=== PATIENT | male | born 1950 | race Caucasian/White ===

== ENCOUNTER 2024-01-21 05:54 | Inpatient (IN) ==
--- NOTE | 2024-01-08 11:38 | PAT Medication Instructions ---
Medication Instructions Date of Service January 08, 2024 Home Medications amlodipine 5 mg tablet 5 mg PO QPM atorvastatin 20 mg tablet 20 mg PO PM folic acid 1 mg tablet 1 mg PO QAM glimepiride 1 mg tablet 1 mg PO QAM hydrochlorothiazide 12.5 mg tablet 12.5 mg PO QPM lisinopril 20 mg tablet 20 mg PO QPM loratadine 10 mg tablet 10 mg PO QPM multivitamin 1 cap PO QAM tamsulosin 0.4 mg capsule 0.4 mg PO QPM DO NOT take the morning of surgery folic acid 1 mg tablet 1 mg PO QAM glimepiride 1 mg tablet 1 mg PO QAM multivitamin 1 cap PO QAM Take evening before surgery amlodipine 5 mg tablet 5 mg PO QPM atorvastatin 20 mg tablet 20 mg PO PM hydrochlorothiazide 12.5 mg tablet 12.5 mg PO QPM lisinopril 20 mg tablet 20 mg PO QPM loratadine 10 mg tablet 10 mg PO QPM tamsulosin 0.4 mg capsule 0.4 mg PO QPM Other Notes NOTHING TO EAT OR DRINK AFTER MIDNIGHT. If you have any questions please call us at [phone] or [phone] or [phone] or [phone]
--- NOTE | 2024-01-09 13:18 | Anesthesiology Consultation ---
Date of Service January 09, 2024 Assessment & Plan (1) Encounter for pre-operative examination: - Check BSG AM DOS - Infectious disease screening: Per assessment on 01/09/24: No known infectious disease contacts or current infectious disease symptoms. No noted recent Covid positive test result. - Patient acceptable risk for surgery pending surgeon-ordered PCP preop evaluation (Dr. Peters). Chart Review Chart Review: Patient seen in Pre Admission Testing Teaching & Discussion Pre-Anesthesia Teaching/Discussion Notes: Instructed NPO after midnight before surgery,except medications with 15 cc of water. Medication instructions provided according to the PAT guidelines. History Surgery Operation Date: 01/21/24 11:25 Proposed Procedures p L2-S1 Decompression and Fusion, Spinal Cord Monitoring - Rosalio Jensen DO Height/Weight Height: 5 ft 11 in Weight: 110.7 kg Allergies Allergy/AdvReac Type Severity Reaction Status Date / Time No Known Allergies Allergy Unverified 10/19/15 10:49 Medications Home Medications Medication Instructions Recorded Confirmed Last Taken amlodipine 5 mg tablet 5 mg PO QPM 01/08/24 01/08/24 Unknown atorvastatin 20 mg tablet 20 mg PO PM 01/08/24 01/08/24 Unknown folic acid 1 mg tablet 1 mg PO QAM 01/08/24 01/08/24 Unknown glimepiride 1 mg tablet 1 mg PO QAM 01/08/24 01/08/24 Unknown hydrochlorothiazide 12.5 mg tablet 12.5 mg PO QPM 01/08/24 01/08/24 Unknown lisinopril 20 mg tablet 20 mg PO QPM 01/08/24 01/08/24 Unknown loratadine 10 mg tablet 10 mg PO QPM 01/08/24 01/08/24 Unknown multivitamin 1 cap PO QAM 01/08/24 01/08/24 Unknown tamsulosin 0.4 mg capsule 0.4 mg PO QPM 01/08/24 01/08/24 Unknown Past Medical History Medical History BPH (benign prostatic hyperplasia) Chronic back pain Diabetes mellitus NIDDM Foot drop, 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 Theodore Baker/[facility] Hyperlipemia Hypertension Seasonal allergies Exercise / Class Metabolic Activity II 4-5 Yardwork/Stairs/Walk up hill Past Surgical History Surgical History History of incision and drainage R/t left knee cellulitis Hx of hand surgery left hand (finger severed from accident) Hx of tonsillectomy Past Anesthesia History No Hx of Anesthesia Complications and No Family Hx of Anesthesia Complications History of PONV No Hx of PONV and No Hx of Motion Sickness Social History Smoking Status: Former smoker Do You Dip or Chew Tobacco: Yes (Quit 12/31/23 - advised none DOS) Smoking End Date: Quit 12/31/23 Hx Alcohol Use: No Hx Substance Use: No substance use type: does not use Review of Systems Patient denies chest pain, shortness of breath, dyspnea on exertion, fever, chills, cough, wheezing, palpitations. Physical Exam Vital Signs BP 161/82 P 102 TEMP 98.2 SP02 97%RA RESP 18 Physical Full cervical extension range of motion. Full TMJ range of motion. TMD 3 finger breaths Mallampati Score 2 Dentition: intact Lungs: clear throughout to auscultation Cardiac: regular rate and rhythm, no murmurs noted Spine: normal Carotid arteries: negative bruit Extremities: no LE edema Large garcia- Advised recommendation to trim/shorten. Patient states he has concerns with garcia shaving d/t evangelical/personal reasons. Advised patient that further discussion to be done with anesthesiologist DOS. Lab Results Anesthesia Preop Results Results Anesthesia Widget: WBC 5.58 K/ul (4.8-10.8) 01/09/24 Hgb 15.4 g/dl (14.0-18.0) 01/09/24 Hct 42.3 % (42.0-52.0) 01/09/24 Plt 165 K/uL (130-400) 01/09/24 Na 136 mmol/L (136-145) 01/09/24 K 4.1 mmol/L (3.5-5.1) 01/09/24 Cl 102 mmol/L (98-107) 01/09/24 CO2 28 mmol/L (21-32) 01/09/24 BUN 18 mg/dl (6-23) 01/09/24 Creat 0.92 mg/dl (0.6-1.4) 01/09/24 Glucose Level 159 mg/dl (70-99(Fasting)) H 01/09/24 PT 10.4 Seconds (9.0-12.0) 01/09/24 PTT 27 Seconds (21-31) 01/09/24 INR 0.9 (0.9-1.1) 01/09/24 HA1c 7.0 % (4.5-5.6) H 01/09/24 Urine Color Yellow 01/09/24 Urine Appearance Clear (Clear) 01/09/24 Urine pH 6.0 (4.5-7.5) 01/09/24 Urine Specific [place] 1.008 (1.000-1.030) 01/09/24 Urine Protein Negative (Negative) 01/09/24 Urine Glucose (UA) Negative (Negative) 01/09/24 Urine Ketones Negative (Negative) 01/09/24 Urine Blood Negative (Negative) 01/09/24 Urine Nitrite Negative (Negative) 01/09/24 Urine Bilirubin Negative (Negative) 01/09/24 Urine Urobilinogen Negative (Negative) 01/09/24 Urine Leukocyte Esterase Negative (Negative) 01/09/24 Blood Type O Positive 01/09/24 Antibody Screen NEGATIVE 01/09/24 Testing Electrocardiogram Date: 01/09/24 ST at 102bpm. RBBB. Chest X-Ray Date: 01/09/24 FINDINGS: Lung volumes are normal. Lungs are clear. There is no pneumothorax or pleural effusion. Cardiac size is normal. There is a probable small hiatal hernia. There is no evidence for pulmonary edema. IMPRESSION: No acute cardiopulmonary findings.
[2024-01-21] MEDS ORDERED: PROPOFOL IV EMULSION 10 MG/ML 20 ML VIAL IV ONE (06:54)
[2024-01-21] MEDS ORDERED: DEXAMETHASONE SOD INJ 4 MG/ML VIAL ONE (06:54)
[2024-01-21] MEDS ORDERED: LIDOCAINE 2% 2 ML VIAL/AMP(20MG/ML) INFIL ONE (06:54)
[2024-01-21] MEDS ORDERED: ONDANSETRON INJ 2 MG/ML 2 ML VIAL ONE (06:54)
[2024-01-21] MEDS ORDERED: fentaNYL citrate PF 100 MCG/2 ML VIAL ONE (06:54)
[2024-01-21] MEDS ORDERED: MIDAZOLAM HCL 1 MG/ML 2ML VIAL ONE (06:54)
[2024-01-21] MEDS ORDERED: ROCURONIUM BROMIDE 10 MG/ML 5 ML VIAL IV ONE ×3 (06:54→09:26)
[2024-01-21] MEDS: CeleBREX 200 MG CAP PO SCH (06:56)
[2024-01-21] MEDS: LR 15ML/HR IV SCH (06:56)
[2024-01-21] MEDS ORDERED: KETAMINE HCL INJ 50 MG/ML 10 ML VIAL ONE (06:56)
[2024-01-21] MEDS: ACETAMINOPHEN 500 MG TAB PO SCH (06:57)
[2024-01-21] MEDS: GABAPENTIN 300 MG CAP PO SCH (06:57)
[2024-01-21] MEDS ORDERED: ePHEDrine sulfate 50 MG/ML AMP IV PRN (07:06)
[2024-01-21] MEDS ORDERED: ONDANSETRON INJ 2 MG/ML 2 ML VIAL IV PRN ×2 (07:06→13:58)
[2024-01-21] MEDS ORDERED: fentaNYL citrate PF 100 MCG/2 ML VIAL IV PRN (07:06)
[2024-01-21] MEDS ORDERED: ATROPINE SULFATE 0.1 MG/ML 10ML SYR IV PRN (07:06)
[2024-01-21] MEDS ORDERED: HYDROmorphone INJ 2 MG/ML SYR/VIAL IV PRN (07:06)
--- NOTE | 2024-01-21 07:44 | History & Physical Bridge Note ---
Date of Service January 21, 2024 History & Physical Bridge Note I have examined the patient, reviewed the History & Physical and in the interval since the performance of the History & Physical I have noted the following changes of clinical significance: no changes noted
--- NOTE | 2024-01-21 07:45 | History & Physical Report ---
Date of Service January 21, 2024 Assessment & Plan (1) Neurogenic claudication due to lumbar spinal stenosis: Plan: L2-S1 decompression and fusion History of Present Illness Chief Complaint: Back and leg pain Primary Care Provider: Lauren Peters MD This is a 73-year-old female presents chronic persistent back and leg pain Patient nonoperative care is here for surgical invention. Allergies Allergy/AdvReac Type Severity Reaction Status Date / Time No Known Allergies Allergy Verified 01/21/24 06:36 Home Medications Medication Instructions Recorded Confirmed Type amlodipine 5 mg tablet 5 mg PO QPM 01/08/24 01/21/24 History atorvastatin 20 mg tablet 20 mg PO PM 01/08/24 01/21/24 History folic acid 1 mg tablet 1 mg PO QAM 01/08/24 01/21/24 History glimepiride 1 mg tablet 1 mg PO QAM 01/08/24 01/21/24 History hydrochlorothiazide 12.5 mg tablet 12.5 mg PO QPM 01/08/24 01/21/24 History lisinopril 20 mg tablet 20 mg PO QPM 01/08/24 01/21/24 History loratadine 10 mg tablet 10 mg PO QPM 01/08/24 01/21/24 History multivitamin 1 cap PO QAM 01/08/24 01/21/24 History tamsulosin 0.4 mg capsule 0.4 mg PO QPM 01/08/24 01/21/24 History Past Med/Surg History Medical History BPH (benign prostatic hyperplasia) Chronic back pain Diabetes mellitus NIDDM Foot drop, 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 Theodore Baker/[facility] heme-[facility] Hyperlipemia Hypertension Seasonal allergies Surgical History History of incision and drainage R/t left knee cellulitis Hx of hand surgery left hand (finger severed from accident) Hx of tonsillectomy Social History Smoking Status: Former smoker Tobacco Type: Cigarettes and Smokeless Tobacco (Dip or Chew) Smoking End Date: Quit 12/31/23; Second Hand Exposure: No; Do You Dip or Chew Tobacco: Yes (Quit 12/31/23 - advised none DOS); Tobacco Cessation Education Requested by Patient: No Hx Alcohol Use: No Hx Substance Use: No Preferred Language: Macanese Communication Ability: Effective 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
[2024-01-21] MEDS: ceFAZolin 2000MG 2,000 MG/15 ML SYR IV SCH ×2 (07:51→18:00)
[2024-01-21] MEDS: BUPIVACAINE/EPINEPHRINE 0.25% 1:200,000 30 ML VIAL ONE (08:24)
[2024-01-21] MEDS ORDERED: PHENYLEPHRINE 100MCG/ML 10ML SYR IV ONE (08:31)
[2024-01-21] MEDS ORDERED: VASOPRESSIN 20 UNIT/ML VIAL ONE (08:31)
[2024-01-21] MEDS ORDERED: PHENYLEPHRINE HCL 10 MG/ML VIAL ONE (08:48)
[2024-01-21] MEDS ORDERED: HYDROmorphone INJ 2 MG/ML SYR/VIAL ONE (09:24)
[2024-01-21] MEDS: ceFAZolin 330 MG/ML 1 GM VIAL ONE (09:30)
[2024-01-21] MEDS ORDERED: SUGAMMADEX SODIUM 200 MG/2 ML VIAL IV ONE (10:36)
[2024-01-21] MEDS: FLOSEAL HEMOSTATIC MATRIX 10ML TOP ONE (11:01)
--- NOTE | 2024-01-21 11:05 | Operative Report ---
Post Operative Report Pre & Post Diagnosis Operation Date: 01/21/24 07:45 Pre-Op Diagnosis: Neurogenic Claudication due to Lumbar Spinal Stenosis Lumbar spondylolisthesis L4-L5 L5-S1 Obesity Post-Op Diagnosis: Same I identified the patient and participated in the time-out.: Yes Procedure Operation Date: 01/21/24 07:45 Actual Procedures #1 lumbar decompression bilateral medial facetectomies and foraminotomies L2-L3, L3-L4, L4-L5 and L5-S1. #2 posterior spinal fusion L2-S1. #3 placement posterior segmental instrumentation L2-S1. #4 interbody fusion L4-L5 L5-S1. #5 placement Spira 12 x 26 mm x 2 at L4-5 and 10 x 26 mm x 2 at L5-S1. #6 placement locally harvested morselized autograft and posterior lateral gutters. #7 placement infuse collagen sponge combined with Koros bone graft in the posterior lateral gutters and Morpheus bone graft interbody space. Surgeon Rosalio Jensen, DO Publications Production Supervisor Aida Alcantar Estimated Blood Loss 700 Findings See Below The patient is 5 foot 10 weighing 110 kg with a BMI in excess of 34. This combined with an EBL of greater than 700 cc created significant technical difficulty from positioning exposure and the procedure itself adding at least 50% increased operative time. Specimens None Indications This is a 73-year-old male who presents above-mentioned diagnosis after failed course of nonoperative care is here for surgical invention. Description of Procedure Patient was met with identified informed consent obtained. Patient was then taken to the operative suite underwent ablation placed in a prone position on Carlo table on top of the Patrick frame. All bony prominences well-padded eyes inspected to ensure no external pressure placed upon the bed at this point the lumbar spine was prepped and draped in normal sterile fashion. Sharp dissection with the assistance of Bovie cautery was performed down to and exposing the lamina and transverse processes of L2 L3-L4-L5 and the sacral ala bilaterally. Obvious pars defect was appreciated at L5-S1 bilaterally. Then performed a complete laminectomy L5 including bilateral medial facetectomies and foraminotomies addressing severe spinal stenosis. I then addressed L4 completing complete discectomy bilateral medial facetectomies and foraminotomies followed by L3 with bilateral medial facetectomies and foraminotomies and lastly L2 with bilateral medial facetectomies and foraminotomies. Pedicle screws were then placed in L2 L3-L4-L5 and S1 levels bilaterally with assistance of fluoroscopy the process priscilla contoured and placed. By way the transforaminal approach on the right a discectomy of L5-S1 was performed endplates guided to subcortical bleeding bone and a 10 x 26 mm Spira cage for with Morpheus bone graft tapped in position. Then proceeded to the left transforaminal region at L5-S1 completed the discectomy endplates guided to subcortical bleeding bone and a second 10 x 26 mm Spira cage filled with Morpheus bone graft tapped in position. And then proceeded to L4-[address] of transforaminal approach on the left discectomy was performed endplates guided to subcortical bleeding bone and a 12 x 26 mm Spira cage filled with Morpheus bone graft tapped in position. Then proceeded to the right transforaminal region at L4-5 completed the discectomy endplates guided to subcortical bleeding bone and a second 12 x 26 mm Spira cage filled with Morpheus bone graft tapped in position. The rods were then compressed locked in final position bilaterally. Transverse processes of L2-L3 L4-5 and the sacral ala burred to subcortical bleeding bone. Infuse collagen sponge combined with Koros bone graft and local autograft placed in the posterior lateral gutters. 15 round MELBA drain inserted. The incision was then closed with 1 Vicryl the fascia 2-0 Vicryl subcutaneously and 4 Monocryl for final skin closure. Steri-Strips sterile dressing placed. Patient waken taken to PACU in stable condition. Please note spinal cord monitoring was utilized at the procedure no changes noted. Lastly Aida Alcantar was present at the entire surgeon while the patient positioning complex portion of the surgery and final closure. I attest to the content of the Intraoperative Record and any orders documented therein. Any exceptions are noted below.
--- NOTE | 2024-01-21 11:10 | Fluoroscopy Report ---
FL lumbar spine 2-3V CLINICAL HISTORY: L2-S1 DECOMPRESSION AND FUSION COMPARISON STUDY: Lumbar spine MRI October 29, 2023. Lumbar spine radiographs November 19, 2023. FLUOROSCOPY TIME: 42 seconds. Ka,r : 38.39 mGy FLUOROSCOPIC IMAGES: 4 FINDINGS: Fluoroscopy was provided during L4-L5 and L5-S1 discectomies with interbody spacer placemen t. Posterior decompression is noted. There are bilateral pedicle screws at the L2, L3, L4, L5 and S1 levels. IMPRESSION: Fluoroscopy provided during L2-S1 decompression and fusion. ACT 112: Negative or not required by law. Electronically signed by: Erasto Chacko M.D. 01/21/2024 11:08 AM
--- NOTE | 2024-01-21 12:07 | Anesthesiology Progress Note ---
Date of Service January 21, 2024 Anesthesia Post Procedure Vital Signs Vital Signs: Temp Pulse Resp BP Pulse Ox O2 Del Method O2 Flow Rate 01/21/24 12:00 111 H 14 121/68 93 Oxymask 2 01/21/24 11:50 110 H 14 105/66 97 Oxymask 6 01/21/24 11:40 109 H 16 102/68 95 Oxymask 6 01/21/24 11:34 107 H 13 109/94 96 Oxymask 6 01/21/24 11:25 99 H 16 74/63 L 95 Oxymask 12 01/21/24 11:19 97.9 F 98 H 12 99/74 L 94 Oxymask 12 01/21/24 06:30 98.8 F 118 H 20 145/88 H 98 Room Air Pain Intensity Bilateral Lower Back: Pain Intensity: 1 Transfer of Care Handoff Completed per policy Notes Mental Status: alert / awake / arousable and participated in evaluation Patient Amnestic to Procedure: Yes Nausea / Vomiting: adequately controlled Pain: adequately controlled Airway Patency, RR, SpO2: stable & adequate BP & HR: stable & adequate Hydration State: stable & adequate Anesthetic Complications: no major complications apparent and Pt Satisfied with anesthetic care
[2024-01-21] MEDS ORDERED: hydrOXYzine HCl 25 MG TAB PO PRN (13:58)
[2024-01-21] MEDS ORDERED: NALOXONE HCL 0.4 MG/1 ML VIAL/CARP IV PRN (13:58)
[2024-01-21] MEDS ORDERED: HYDROmorphone INJ 1 MG/ML SYRINGE IV PRN (13:58)
[2024-01-21] MEDS ORDERED: METOCLOPRAMIDE HCL INJ 5 MG/ML 2 ML VIAL IV PRN (13:58)
[2024-01-21] MEDS ORDERED: LORazepam 0.5 MG TAB PO PRN (13:58)
[2024-01-21] MEDS ORDERED: LORazepam 0.5 MG in SYRINGE 0.25 ML IV PRN (13:58)
[2024-01-21] MEDS ORDERED: ACETAMINOPHEN 1,000 MG/100 ML VIAL IV PRN (13:58)
[2024-01-21] MEDS ORDERED: oxyCODONE HCL IR 5 MG TAB (IMMEDIATE RELEASE) PO PRN (13:58)
[2024-01-21] MEDS ORDERED: diphenhydrAMINE Capsule 25 MG CAP PO PRN (13:58)
[2024-01-21] MEDS ORDERED: DO NOT ADMINISTER FLU VACCINE PRN (13:58)
[2024-01-21] MEDS ORDERED: DO NOT ADMINISTER PNEUMOCOCCAL VACCINE PRN (13:58)
[2024-01-21] MEDS ORDERED: bisacodyL 10 MG SUPP PR PRN (13:58)
[2024-01-21] MEDS ORDERED: MAGNESIUM HYDROXIDE SUSP 30 ML UDC PO PRN (13:58)
[2024-01-21] MEDS ORDERED: SOD PHOSPHATE/SOD BIPHOSPHATE ENEMA 132 ML BTL PR PRN (13:58)
[2024-01-21] MEDS ORDERED: HYDROmorphone INJ 0.5 MG/0.5 ML SYR IV PRN (13:58)
[2024-01-21] MEDS ORDERED: traMADol HCL 50 MG TABLET PO PRN (13:58)
[2024-01-21] MEDS ORDERED: PHARMACY GLYCEMIC MGMT CONSULT PRN (13:58)
[2024-01-21] MEDS ORDERED: ALUMINUM/MAGNESIUM SUSP 30 ML UDC PO PRN (13:58)
[2024-01-21] MEDS ORDERED: PROMETHAZINE HCL 12.5 MG in SODIUM CHLORIDE 0.9% 50 ML IV PRN (13:58)
[2024-01-21] MEDS ORDERED: ONDANSETRON 4 MG OD TAB PO PRN (13:58)
[2024-01-21] MEDS: LR 60ML/HR IV SCH (14:21)
--- NOTE | 2024-01-21 15:09 | Pharmacy Report ---
Pharmacy Glycemic Short Note 2 - Date of Service January 21, 2024 - Glycemic Short BSG Results (Last 24 hours): 01/21/24 01/21/24 06:37 11:20 POC Glucose 130 H 212 H OUTPATIENT ANTIDIABETIC REGIMEN: * glimepiride 1mg PO QAM * HbA1c 7.0% 01/09/24 ASSESSMENT: * Theodore is a 73 YOM admitted status post spinal decompression/fusion with a history of diabetes mellitus. Pharmacy has been consulted for glycemic managem ent while inpatient. * Preoperative BSG within goal range, demetrio above 200 by midday, appears to have received IV steroids in the OR, ongoing dexamethasone 6mg IV daily ordered for 3 days. Give approximately 0.3units/kg x1 now, basal scale added at bedtime if additional coverage is needed. * Novolog initiated at a weight based stress of 3 PLAN FOR INPATIENT GLYCEMIC CONTROL: * Hold outpatient oral diabetes medications * Basal insulin * Lantus 30 units SQ x1 * Lantus 0-20 units SQ HS (see eMAR for additional details) * Bolus insulin * NovoLog per scale ACHS or Q6hrs while NPO * Goal Range: Low 110 mg/dL - High 140 mg/dL * Correction Factor: 15 mg/dL/unit * Nutritional / Prandial insulin per carb ratio of 1 unit per 5 grams CHO consumed
--- NOTE | 2024-01-21 15:13 | Consultation ---
Date of Consultation January 21, 2024 Assessment & Plan (1) Neurogenic claudication due to lumbar spinal stenosis: (2) Diabetes mellitus: (3) History of leukemia: (4) Hypertension: (5) Hyperlipemia: Plan This is a 73-year-old male who has a significant past medical history of T2DM, HTN, HLD, BPH, history of leukemia and chronic back pain who presents for elective lumbar procedure by Dr. Jensen. Neurogenic claudication due to lumbar spinal stenosis Status post lumbar decompression fusion L2-S1, Dr. Jensen POD #0 EBL 700 mL, GRZEGORZ drain 425 ml Tolerated procedure well Pain/wound management per orthopedic Activity and therapy as per orthopedics Encourage incentive spirometry Monitor hemoglobin in setting of blood loss, preop 15 T2DM, controlled Hold glimepiride A1c 7.0 Lantus/NovoLog per protocol, glycemic pharmacy on board appreciate input HTN Blood pressure on lower side postoperatively, required IV fluid bolus Hold lisinopril, amlodipine, HCTZ which were to be administered starting this evening Resume as blood pressure allows Hyperlipidemia Chronic, stable Continue statin BPH Chronic, stable Continue Flomax History of hairy cell leukemia Diagnosed in 2011, currently in remission follows Dr. Augustin DVT ppx: SCDs per primary FULL CODE PCP: Lauren Peters, pt and family state they wish to establish with someone in [place], discussed if they wish to establish with someone with in [facility] we could make them a hospital follow up appointment Dispo: per primary Thank you for this consultation. We will follow the patient with you during their hospital stay. You can reach a member of the [facility] Hospitalist Team 23/04 via hospitalist role on tiger text. A total of 45 minutes was spent coordinating, documenting, and providing care for this patient excluding time spent in the performance of separately billed services. This included personally viewing all current laboratories and imaging studies, medication reconciliation, outpatient chart review, and discussion with specialists. Supervising Physician Co-Signing Physician Notes Patient seen and examined at bedside independently. Discussed with above provider He is comfortably lying in the bed; not in distress. He denies chest pain, shortness of breath, abdominal discomfort or urinary symptoms. Continue home meds for hypertension Insulin sliding scale for type 2 diabetes mellitus I have reviewed the advanced practitioner's documentation, and I agree with, and take responsibility for the plan of care I spent a total of 15 minutes coordinating, documenting, and providing care for this patient excluding time spent in the performance of separately billed services. All of the aforementioned completed while collaborating with the assigned advanced practitioner for a full treatment plan Please note the above document was generated using voice recognition software. It may contain grammatical, syntax or spelling errors. Any formal questions or concerns about the content, text or information contained within the body of this dictation should be directly addressed to the provider for clarification History of Present Illness Requesting Physician: Dr. Jensen Reason for Consultation: Postop medical management Attending Physician: Rosalio Jensen, DO History of Present Illness This is a 73-year-old male who has a significant past medical history of T2DM, HTN, HLD, BPH, history of leukemia and chronic back pain who presents for elective lumbar procedure by Dr. Jensen. He underwent an L2-S1 decompression and fusion today and tolerated the procedure well. His outpatient preop clearance was reviewed. His last A1c is 7.3. His medications were also reconciled through his medical clearance paperwork. He has history of high blood pressure maintained on amlodipine, hydrochlorothiazide and lisinopril. Allergies Allergy/AdvReac Type Severity Reaction Status Date / Time No Known Allergies Allergy Verified 01/21/24 06:36 Home Medications Medication Instructions Recorded Confirmed Type amlodipine 5 mg tablet 5 mg PO QPM 01/08/24 01/21/24 History atorvastatin 20 mg tablet 20 mg PO PM 01/08/24 01/21/24 History folic acid 1 mg tablet 1 mg PO QAM 01/08/24 01/21/24 History glimepiride 1 mg tablet 1 mg PO QAM 01/08/24 01/21/24 History hydrochlorothiazide 12.5 mg tablet 12.5 mg PO QPM 01/08/24 01/21/24 History lisinopril 20 mg tablet 20 mg PO QPM 01/08/24 01/21/24 History loratadine 10 mg tablet 10 mg PO QPM 01/08/24 01/21/24 History multivitamin 1 cap PO QAM 01/08/24 01/21/24 History tamsulosin 0.4 mg capsule 0.4 mg PO QPM 01/08/24 01/21/24 History Patient History Medical History (Updated 01/21/24 @ 15:31 by Rylee Lyon PA-C) Diabetes mellitus NIDDM Seasonal allergies Herniated lumbar intervertebral disc Chronic back pain Foot drop, 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) Family History (Updated 01/21/24 @ 15:35 by Rylee Lyon PA-C) Other Family history non-contributory Social History Smoking Status: Former smoker Tobacco Type: Cigarettes and Smokeless Tobacco (Dip or Chew) Smoking End Date: Quit 12/31/23; Second Hand Exposure: No; Do You Dip or Chew Tobacco: Yes (Quit 12/31/23 - advised none DOS); Tobacco Cessation Education Requested by Patient: No Hx Alcohol Use: No Hx Substance Use: No Preferred Language: Macedonian Communication Ability: Effective Creative Writing Professor Required: No Beliefs That Will Affect Care: None Current Living Situation: Spouse Other Information That Helps Us Care for You: No Feels Safe at Home: Yes Safety Concerns: Feels Safe At This Time Assistive Devices: None Review of Systems Review of Systems: All systems reviewed & are unremarkable except as noted in HPI & below Physical Exam Physical Exam: Constitutional: WD/WN, obese, M, vitals as above, NAD, sitting up in bed, pleasant, conversing easily Head: Normocephalic, Atraumatic Eyes: PERRL, conjunctivae normal, anicteric sclerae ENMT: external ear and nose normal, oropharynx normal Neck: trachea midline, no thyromegaly normal visual inspection Respiratory: normal respiratory effort, lungs clear to auscultation, no wheeze, rales, rhonchi. Normal insp/exp effort, no accessory muscle use Cardiovascular: RRR, no murmur, no edema Vessels: no JVD or carotid bruit Chest: normal inspection of chest Abdomen: protuberant abd, normal bowel sounds, soft, nontender, no hepatosplenomegaly Musculoskeletal: no cyanosis or clubbing, AROM x 4, lumbar dressing cdi, grzegorz drain with serosang drainage Skin: no rashes, warm and dry normal turgor Neurologic: no face palsy, no dysarthria CN's II-XI intact bilaterally and moves all extremities Psychiatric: A+Ox3, euthymic affect Lymphatic: no cervical or axillary lymphadenopathy : Macias intact draining yellow urine Results & Data Vital Signs (Past 12 Hours) Vital Signs Temp Pulse Resp BP Pulse Ox O2 Del Method O2 Flow Rate 01/21/24 14:25 36.4 C L 98 H 14 103/64 94 Room Air 01/21/24 13:20 106 H 14 105/52 L 94 Room Air 0 01/21/24 13:10 106 H 13 112/56 L 92 Room Air 0 01/21/24 13:00 37.3 C 107 H 14 101/50 L 95 Room Air 0 01/21/24 12:50 103 H 12 92/47 L 92 Room Air 0 01/21/24 12:40 36.2 C L 105 H 13 92/44 L 92 Room Air 0 01/21/24 12:30 36.2 C L 104 H 13 102/46 L 92 Room Air 0 01/21/24 12:20 111 H 13 99/46 L 94 Room Air 0 01/21/24 12:10 111 H 12 90/55 L 92 Room Air 0 01/21/24 12:00 111 H 14 121/68 93 Oxymask 2 01/21/24 11:50 110 H 14 105/66 97 Oxymask 6 01/21/24 11:40 109 H 16 102/68 95 Oxymask 6 01/21/24 11:34 107 H 13 109/94 96 Oxymask 6 01/21/24 11:25 99 H 16 74/63 L 95 Oxymask 12 01/21/24 11:19 36.6 C 98 H 12 99/74 L 94 Oxymask 12 01/21/24 06:30 37.1 C 118 H 20 145/88 H 98 Room Air Laboratory Results Preoperative labs done on 01/09/2024 reviewed independently interpreted by myself. CBC was generally unremarkable with a hemoglobin of 15.4. BMP was also generally unremarkable except for mild hyperglycemia with a glucose of 159 and A1c 7.0. Urinalysis was negative. Diagnostic Findings Lumbar Spine X-Ray 01/21/24 09:35 FL lumbar spine 2-3V CLINICAL HISTORY: L2-S1 DECOMPRESSION AND FUSION COMPARISON STUDY: Lumbar spine MRI October 29, 2023. Lumbar spine radiographs November 19, 2023. FLUOROSCOPY TIME: 42 seconds. Ka,r : 38.39 mGy FLUOROSCOPIC IMAGES: 4 FINDINGS: Fluoroscopy was provided during L4-L5 and L5-S1 discectomies with interbody spacer placement. Posterior decompression is noted. There are bilateral pedicle screws at the L2, L3, L4, L5 and S1 levels. IMPRESSION: Fluoroscopy provided during L2-S1 decompression and fusion. ACT 112: Negative or not required by law. Electronically signed by: Erasto Chacko M.D. 01/21/2024 11:08 AM Preoperative chest x-ray on 01/09/2024 revealed no acute cardiopulmonary findings. This was independently interpreted and reviewed by myself Medications Administered Current Inpatient Medications Acetaminophen (Acetaminophen 500 Mg Tab) 1,000 mg PO PREOP LILY Stop: 01/21/24 18:00 Last Admin: 01/21/24 06:57 Dose: 1,000 mg Acetaminophen (Acetaminophen 500 Mg Tab) 1,000 mg PO Q8H PRN PRN Reason: MILD Pain Scale 1,2,3 & Pre PT Stop: 02/20/24 13:57 Al Hydrox/Mg Hydrox/Simethicone (Aluminum/Magnesium Susp 30 Ml Udc) 30 ml PO Q6H PRN PRN Reason: Dyspepsia Stop: 02/20/24 13:57 Amlodipine Besylate (Amlodipine Besylate 5 Mg Tab) 5 mg PO QPM LILY Stop: 02/20/24 20:59 Atorvastatin Calcium (Atorvastatin 20 Mg Tab) 20 mg PO PM LILY Stop: 02/20/24 20:59 Bisacodyl (Bisacodyl 10 Mg Supp) 10 mg [place] DAILY PRN PRN Reason: Constipation Stop: 02/20/24 13:57 Celecoxib (Celebrex 200 Mg Cap) 200 mg PO PREOP LILY Stop: 01/21/24 18:00 Last Admin: 01/21/24 06:56 Dose: 200 mg Diphenhydramine HCl (Diphenhydramine Capsule 25 Mg Cap) 25 mg PO Q6H PRN PRN Reason: Allergic Rhinitis/Insomnia Stop: 02/20/24 13:57 Famotidine (Famotidine 20 Mg Tab) 20 mg PO Q12H PRN PRN Reason: Dyspepsia Stop: 02/20/24 13:57 Folic Acid (Folic Acid 1 Mg Tab) 1 mg PO QAM LILY Stop: 02/21/24 08:59 Gabapentin (Gabapentin 300 Mg Cap) 300 mg PO PREOP LILY Stop: 01/21/24 18:00 Last Admin: 01/21/24 06:57 Dose: 300 mg Hydrochlorothiazide (Hydrochlorothiazide 25 Mg Tab) 12.5 mg PO QPM LILY Stop: 02/20/24 20:59 Hydromorphone HCl (Hydromorphone Inj 0.5 Mg/0.5 Ml Syr) 0.5 mg IV Q3H PRN PRN Reason: MODERATE Pain (Scale 4,5,6) & Pre PT Stop: 02/04/24 13:57 Hydromorphone HCl (Hydromorphone Inj 1 Mg/Ml Syringe) 1 mg IV Q3H PRN PRN Reason: SEVERE Pain (Scale 7,8,9,10) Stop: 02/04/24 13:57 Hydroxyzine HCl (Hydroxyzine Hcl 25 Mg Tab) 25 mg PO Q8H PRN PRN Reason: Anxiety Stop: 02/20/24 13:57 Lactated Ringer's (Lr) 1,000 mls @ 60 mls/hr IV .[id number] LILY Stop: 01/21/24 22:39 Last Admin: 01/21/24 14:21 Dose: Not Given Cefazolin Sodium (Ancef 2000mg) 2,000 mg in 15 mls @ 3.75 mls/min IV PREOP LILY; Protocol Stop: 01/21/24 18:00 Last Admin: 01/21/24 07:51 Dose: 3.75 mls/min Lactated Ringer's (Lr) 1,000 mls @ 15 mls/hr IV .Q24H LILY Stop: 01/22/24 05:59 Last Infusion: 01/21/24 07:50 Dose: Infused Lactated Ringer's (Lr) 1,000 mls @ 150 mls/hr IV .[id number] LILY Stop: 02/20/24 13:57 Promethazine HCl 12.5 mg/ (Sodium Chloride) 50.5 mls @ 202 mls/hr IV Q6H PRN PRN Reason: Nausea &/or Vomiting Stop: 02/20/24 13:57 Acetaminophen (Ofirmev) 1,000 mg in 100 mls @ 400 mls/hr IV Q8H PRN PRN Reason: Pain Rating 1-3 & Pre PT Stop: 01/22/24 13:59 Cefazolin Sodium (Ancef 2000mg) 2,000 mg in 15 mls @ 3.75 mls/min IV Q8H LILY; Protocol Stop: 01/22/24 01:33 Lorazepam 0.5 mg/ Syringe 0.5 mls @ 2 mls/min IV Q8H PRN; Protocol PRN Reason: Sedation/Anxiety Stop: 02/20/24 13:57 Dexamethasone 6 mg/ Syringe 1.5 mls @ 1 mls/min IV DAILY [facility] Stop: 01/24/24 09:02 Influenza Virus Vaccine Quadrival (Do Not Administer Flu Vaccine) 1 each N/A PRN PRN PRN Reason: Notification Stop: 02/20/24 13:57 Insulin Aspart (Insulin Aspart Per Unit Charge) 0 units SC [facility] Stop: 02/20/24 14:29 Insulin Glargine (Lantus Per Unit Charge) 0 units SC [facility]; Protocol Stop: 01/21/24 21:01 Lisinopril (Lisinopril 20 Mg Tab) 20 mg PO QPM [facility] Stop: 02/20/24 20:59 Loratadine (Loratadine 10 Mg Tab) 10 mg PO QPM [facility] Stop: 02/20/24 20:59 Lorazepam (Lorazepam 0.5 Mg Tab) 0.5 mg PO Q8H PRN PRN Reason: Sedation/Anxiety Stop: 02/20/24 13:57 Magnesium Hydroxide (Magnesium Hydroxide Susp 30 Ml Udc) 30 ml PO Q24H PRN PRN Reason: Constipation Stop: 02/20/24 13:57 Metoclopramide HCl (Metoclopramide Hcl Inj 5 Mg/Ml 2 Ml Vial) 10 mg IV Q6H PRN PRN Reason: Nausea &/or Vomiting Stop: 02/20/24 13:57 Miscellaneous Information (Pharmacy Glycemic Mgmt Consult) 1 each N/A UD PRN PRN Reason: Consult Stop: 02/20/24 13:57 Multivit[facility] ([facility]amin Tab) [facility] [place] [facility] Stop: 02/21/24 08:59 Naloxone HCl (Naloxone Hcl 0.4 Mg/1 Ml Vial/Carp) 0.1 mg IV Q5M PRN PRN Reason: Oversedation/Resp depression Stop: 02/20/24 13:57 Ondansetron HCl (Ondansetron Inj 2 Mg/Ml 2 Ml Vial) 4 mg IV Q6H PRN PRN Reason: Nausea &/or Vomiting Stop: 02/20/24 13:57 Ondansetron HCl (Ondansetron 4 Mg Od Tab) 4 mg PO Q6H PRN PRN Reason: Nausea Stop: 02/20/24 13:57 Oxycodone HCl (Oxycodone Hcl Ir 5 Mg Tab (Immediate Release)) 5 - 10 mg PO Q4H PRN PRN Reason: Pain & Pre PT Stop: 02/04/24 13:57 Pneumococcal Polyvalent Vaccine (Do Not Administer Pneumococcal Vaccine) 1 each N/A PRN PRN PRN Reason: Notification Stop: 02/20/24 13:57 Polyethylene Glycol (Polyethylene (Miralax) 17 Gm Pack) 17 gm PO Q6 LILY Stop: 02/21/24 05:59 Senna/Docusate Sodium (Docusate Sodium/Senna 50/8.6mg Tab) 2 tab PO HS LILY Stop: 02/20/24 20:59 Sodium Biphosphate/Sodium Phosphate (Sod Phosphate/Sod Biphosphate Enema 132 Ml Btl) 132 ml [place] ONE PRN PRN Reason: Constipation Stop: 02/20/24 13:57 Tamsulosin HCl (Tamsulosin Hcl 0.4 Mg Cap) 0.4 mg PO QPM LILY Stop: 02/20/24 20:59 Tramadol HCl (Tramadol Hcl 50 Mg Tablet) 50 - 100 mg PO Q4H PRN PRN Reason: Moderate-Severe pain & Pre PT Stop: 02/20/24 13:57 ECG Additional Comments: I have independently reviewed and interpreted patient's admitting EKG which revealed: Ventricular rate 102 bpm, sinus tachycardia, right bundle branch block, QTc 471 MS
[2024-01-21] MEDS: LACTATED RINGER'S 1,000 ML IV SCH (15:20)
[2024-01-21] MEDS: LANTUS PER UNIT CHARGE SC ONE (15:20)
[2024-01-21] MEDS: INSULIN ASPART PER UNIT CHARGE SC SCH (15:21)
[2024-01-21] MEDS: TAMSULOSIN HCL 0.4 MG CAP PO SCH (20:29)
[2024-01-21] MEDS: LORATADINE 10 MG TAB PO SCH (20:29)
[2024-01-21] MEDS: DOCUSATE SODIUM/SENNA 50/8.6MG TAB PO SCH (20:30)
[2024-01-21] MEDS: ATORVASTATIN 20 MG TAB PO SCH (20:30)
[2024-01-21] MEDS: LANTUS PER UNIT CHARGE SC SCH (20:37)
[2024-01-22] MEDS: POLYETHYLENE (MIRALAX) 17 GM PACK PO SCH (05:08)
[2024-01-22] MEDS: SODIUM CHLORIDE 0.9% 1,000 ML IV ONE (05:09)
[2024-01-22 07:29] LABS: Basophils # (auto) 0.01 K/uL (0.00-0.20); Basophils % (auto) 0.1 %; Hematocrit (blood only) 34.4 % (42.0-52.0); Hemoglobin 12.1 g/dl (14.0-18.0); Immature Granulocytes # (auto) 0.05 K/uL (0.01-0.20); Immature Granulocytes % (auto) 0.4 %; Lymphocytes # (auto) 0.99 K/uL (1.20-3.40); Lymphocytes % (auto) 7.5 %; Mean Corpuscular Hemoglobin 34.5 pg (25.0-34.0); Mean Corpuscular Hgb Conc 35.2 g/dL (32.0-36.0); Mean Platelet Volume 10.3 fL (9.4-12.4); Monocytes # (auto) 1.15 K/uL (0.11-0.59); Monocytes % (auto) 8.7 %; Neutrophils # (auto) 11.06 K/uL (1.40-6.50); Neutrophils % (auto) 83.3 %; Platelet Count 142 K/uL (130-400); RDW Coefficient of Variation 12.4 % (11.5-14.5); RDW Standard Deviation 44.5 fL (36.4-46.3); Red Blood Count 3.51 M/uL (4.70-6.10); White Blood Count 13.26 K/ul (4.8-10.8)
[2024-01-22 07:43] LABS: BUN Creatinine Ratio 18.8 (10-20); Calcium 9.3 mg/dl (8.6-10.3); Creatinine Clr Calc Pharmacy 80.9 ml/min; Est GFR (African American) 85.1 ml/min; Est GFR (Non-African American) 73.4 ml/min; Magnesium 1.8 mg/dl (1.7-2.4); Potassium 4.2 mmol/L (3.5-5.1)
[2024-01-22] MEDS: LANTUS PER UNIT CHARGE SC SCH ×2 (08:58→20:37)
[2024-01-22] MEDS ORDERED: GLIMEPIRIDE 2 MG TAB PO SCH (09:00)
[2024-01-22] MEDS: MULTIVITAMIN TAB PO SCH (09:04)
[2024-01-22] MEDS: FOLIC ACID 1 MG TAB PO SCH (09:04)
[2024-01-22] MEDS: dexAMETHasone 6 MG in SYRINGE 0 ML IV SCH (09:07)
[2024-01-22] MEDS: MAGNESIUM SULFATE / D5W 1 GM/100 ML BAG IV ONE (09:49)
--- NOTE | 2024-01-22 12:01 | Hospitalist Progress Note ---
Date of Service January 22, 2024 Assessment & Plan (1) Neurogenic claudication due to lumbar spinal stenosis: (2) Diabetes mellitus: (3) History of leukemia: (4) Hypertension: (5) Hyperlipemia: (6) Acute blood loss anemia: Plan This is a 73-year-old male who has a significant past medical history of T2DM, HTN, HLD, BPH, history of leukemia and chronic back pain who presents for elective lumbar procedure by Dr. Jensen. Neurogenic claudication due to lumbar spinal stenosis Status post lumbar decompression fusion L2-S1, Dr. Jensen POD #1 EBL 700 mL, GRZEGORZ drain 860 ml Tolerated procedure well Pain/wound management per orthopedic Activity and therapy as per orthopedics Encourage incentive spirometry Monitor hemoglobin in setting of blood loss, preop 15 Acute blood loss anemia in setting of expected post operative blood loss EBL 700ml; GRZEGORZ drain with 860ml Pre op hgb 15, POD #1 12.1 repeat cbc in a.m. T2DM, controlled Hold glimepiride A1c 7.0 Lantus/NovoLog per protocol, glycemic pharmacy on board appreciate input BSG stable at 153, 164 HTN Blood pressure on lower side postoperatively, required IV fluid bolus IVF to be stopped BP normalized and will resume lisinopril, amlodipine an HCTZ Hyperlipidemia Chronic, stable Continue statin BPH Chronic, stable Continue Flomax History of hairy cell leukemia Diagnosed in 2011, currently in remission follows Dr. Augustin DVT ppx: SCDs per primary FULL CODE PCP: Lauren Peters, pt and family state they wish to establish with someone in [place], discussed if they wish to establish with someone with in [facility] we could make them a hospital follow up appointment Dispo: per primary Thank you for this consultation. We will follow the patient with you during their hospital stay. You can reach a member of the [facility] Hospitalist Team 23/04 via hospitalist role on tiger text. A total of 40 minutes was spent coordinating, documenting, and providing care for this patient excluding time spent in the performance of separately billed services. This included personally viewing all current laboratories and imaging studies, medication reconciliation, outpatient chart review, and discussion with specialists. Admission and Anticipated Discharge Date Admission Date: January 21, 2024 Subjective Patient was seen and examined in room 376. Follow-up lumbar surgery. He complains of incisional pain as well as numbness and tingling in his feet. He is passing gas but has not yet moved his bowels. He denies chest pain, shortness breath, nausea or vomiting. He is tolerating his diet but feels he could be fed more food. Review of Systems Review of Systems: All systems reviewed & are unremarkable except as noted in HPI & below Physical Exam Physical Exam: Gen: WD/WN, M, sitting up in bedside chair, NAD, A&O x3 HEENT: Normocephalic, atraumatic, conjunctivae moist, sclerae anicteric, mucous membranes moist. Lung: Clear to Auscultation bilaterally, no wheezes/rales/rhonchi Heart: Regular rate, regular rhythm, no murmurs, rubs, or gallops Abdomen: Soft, NT, ND +BS x 4 Extremities: No edema, lumbar dressing CDI, grzegorz drain with serosang drainage Skin: Warm, no rash, negative turgor. Results & Data Results & Data Vital Signs (Past 12 Hours) Vital Signs Temp Pulse Pulse Resp BP BP Pulse Ox 01/22/24 11:28 36.6 C 111 H 16 149/76 H 97 01/22/24 07:41 37.2 C 109 H 16 123/65 97 01/22/24 03:09 36.7 C 109 H 18 133/70 98 O2 Del Method 01/22/24 11:28 Room Air 01/22/24 07:41 Room Air 01/22/24 03:09 Room Air Laboratory Results Short CBC 01/22/24 Range/Units 06:38 WBC 13.26 H (4.8-10.8) K/ul Hgb 12.1 L (14.0-18.0) g/dl Hct 34.4 L (42.0-52.0) % Plt Count 142 (130-400) K/uL BMP 01/22/24 06:38 Sodium 135 L Potassium 4.2 Chloride 102 Carbon Dioxide 24 BUN 19 Creatinine 1.01 Glucose 153 H Calcium 9.3 Medications Administered Current Inpatient Medications Acetaminophen (Acetaminophen 500 Mg Tab) 1,000 mg PO Q8H PRN PRN Reason: MILD Pain Scale 1,2,3 & Pre PT Stop: 02/20/24 13:57 Al Hydrox/Mg Hydrox/Simethicone (Aluminum/Magnesium Susp 30 Ml Udc) 30 ml PO Q6H PRN PRN Reason: Dyspepsia Stop: 02/20/24 13:57 Amlodipine Besylate (Amlodipine Besylate 5 Mg Tab) 5 mg PO QPM [facility] Stop: 02/20/24 20:59 Atorvastatin Calcium (Atorvastatin 20 Mg Tab) 20 mg PO PM LILY Stop: 02/20/24 20:59 Last Admin: 01/21/24 20:30 Dose: 20 mg Bisacodyl (Bisacodyl 10 Mg Supp) 10 mg [place] DAILY PRN PRN Reason: Constipation Stop: 02/20/24 13:57 Diphenhydramine HCl (Diphenhydramine Capsule 25 Mg Cap) 25 mg PO Q6H PRN PRN Reason: Allergic Rhinitis/Insomnia Stop: 02/20/24 13:57 Famotidine (Famotidine 20 Mg Tab) 20 mg PO Q12H PRN PRN Reason: Dyspepsia Stop: 02/20/24 13:57 Folic Acid (Folic Acid 1 Mg Tab) 1 mg PO QAM [facility] Stop: 02/21/24 08:59 Last Admin: 01/22/24 09:04 Dose: 1 mg Hydrochlorothiazide (Hydrochlorothiazide 25 Mg Tab) 12.5 mg PO QPM LILY Stop: 02/20/24 20:59 Hydromorphone HCl (Hydromorphone Inj 0.5 Mg/0.5 Ml Syr) 0.5 mg IV Q3H PRN PRN Reason: MODERATE Pain (Scale 4,5,6) & Pre PT Stop: 02/04/24 13:57 Hydromorphone HCl (Hydromorphone Inj 1 Mg/Ml Syringe) 1 mg IV Q3H PRN PRN Reason: SEVERE Pain (Scale 7,8,9,10) Stop: 02/04/24 13:57 Hydroxyzine HCl (Hydroxyzine Hcl 25 Mg Tab) 25 mg PO Q8H PRN PRN Reason: Anxiety Stop: 02/20/24 13:57 Promethazine HCl 12.5 mg/ (Sodium Chloride) 50.5 mls @ 202 mls/hr IV Q6H PRN PRN Reason: Nausea &/or Vomiting Stop: 02/20/24 13:57 Acetaminophen (Ofirmev) 1,000 mg in 100 mls @ 400 mls/hr IV Q8H PRN PRN Reason: Pain Rating 1-3 & Pre PT Stop: 01/22/24 13:59 Lorazepam 0.5 mg/ Syringe 0.5 mls @ 2 mls/min IV Q8H PRN; Protocol PRN Reason: Sedation/Anxiety Stop: 02/20/24 13:57 Dexamethasone 6 mg/ Syringe 1.5 mls @ 1 mls/min IV DAILY [facility] Stop: 01/24/24 09:02 Last Admin: 01/22/24 09:07 Dose: 1 mls/min Influenza Virus Vaccine Quadrival (Do Not Administer Flu Vaccine) 1 each N/A PRN PRN PRN Reason: Notification Stop: 02/20/24 13:57 Insulin Aspart (Insulin Aspart Per Unit Charge) 0 units SC ACHS [facility] Stop: 02/20/24 14:29 Last Admin: 01/22/24 08:56 Dose: 8 units Insulin Glargine (Lantus Per Unit Charge) 50 units SC DAILY [facility] Stop: 01/24/24 12:00 Last Admin: 01/22/24 08:58 Dose: 50 units Insulin Glargine (Lantus Per Unit Charge) 0 units SC HS [facility]; Protocol Stop: 02/21/24 20:59 Lisinopril (Lisinopril 20 Mg Tab) 20 mg PO QPM LILY Stop: 02/20/24 20:59 Loratadine (Loratadine 10 Mg Tab) 10 mg PO QPM LILY Stop: 02/20/24 20:59 Last Admin: 01/21/24 20:29 Dose: 10 mg Lorazepam (Lorazepam 0.5 Mg Tab) 0.5 mg PO Q8H PRN PRN Reason: Sedation/Anxiety Stop: 02/20/24 13:57 Magnesium Hydroxide (Magnesium Hydroxide Susp 30 Ml Udc) 30 ml PO Q24H PRN PRN Reason: Constipation Stop: 02/20/24 13:57 Metoclopramide HCl (Metoclopramide Hcl Inj 5 Mg/Ml 2 Ml Vial) 10 mg IV Q6H PRN PRN Reason: Nausea &/or Vomiting Stop: 02/20/24 13:57 Miscellaneous Information (Pharmacy Glycemic Mgmt Consult) 1 each N/A UD PRN PRN Reason: Consult Stop: 02/20/24 13:57 Multivitamins (Multivitamin Tab) 1 tab PO QAM [facility] Stop: 02/21/24 08:59 Last Admin: 01/22/24 09:04 Dose: 1 tab Naloxone HCl (Naloxone Hcl 0.4 Mg/1 Ml Vial/Carp) 0.1 mg IV Q5M PRN PRN Reason: Oversedation/Resp depression Stop: 02/20/24 13:57 Ondansetron HCl (Ondansetron Inj 2 Mg/Ml 2 Ml Vial) 4 mg IV Q6H PRN PRN Reason: Nausea &/or Vomiting Stop: 02/20/24 13:57 Ondansetron HCl (Ondansetron 4 Mg Od Tab) 4 mg PO Q6H PRN PRN Reason: Nausea Stop: 02/20/24 13:57 Oxycodone HCl (Oxycodone Hcl Ir 5 Mg Tab (Immediate Release)) 5 - 10 mg PO Q4H PRN PRN Reason: Pain & Pre PT Stop: 02/04/24 13:57 Pneumococcal Polyvalent Vaccine (Do Not Administer Pneumococcal Vaccine) 1 each N/A PRN PRN PRN Reason: Notification Stop: 02/20/24 13:57 Polyethylene Glycol (Polyethylene (Miralax) 17 Gm Pack) 17 gm PO Q6 LILY Stop: 02/21/24 05:59 Last Admin: 01/22/24 05:08 Dose: 17 gm Senna/Docusate Sodium (Docusate Sodium/Senna 50/8.6mg Tab) 2 tab PO HS LILY Stop: 02/20/24 20:59 Last Admin: 01/21/24 20:30 Dose: 2 tab Sodium Biphosphate/Sodium Phosphate (Sod Phosphate/Sod Biphosphate Enema 132 Ml Btl) 132 ml [place] ONE PRN PRN Reason: Constipation Stop: 02/20/24 13:57 Tamsulosin HCl (Tamsulosin Hcl 0.4 Mg Cap) 0.4 mg PO QPM LILY Stop: 02/20/24 20:59 Last Admin: 01/21/24 20:29 Dose: 0.4 mg Tramadol HCl (Tramadol Hcl 50 Mg Tablet) 50 - 100 mg PO Q4H PRN PRN Reason: Moderate-Severe pain & Pre PT Stop: 02/20/24 13:57
--- NOTE | 2024-01-22 13:07 | Pharmacy Report ---
Pharmacy Glycemic Short Note 2 - Date of Service January 22, 2024 - Glycemic Short BSG Results (Last 24 hours): 01/21/24 01/21/24 01/21/24 15:13 17:00 20:27 Glucose POC Glucose 215 H 223 H 231 H 01/22/24 01/22/24 01/22/24 06:38 07:34 11:35 Glucose 153 H POC Glucose 186 H 164 H OUTPATIENT ANTIDIABETIC REGIMEN: * glimepiride 1mg PO QAM * HbA1c 7.0% 01/09/24 ASSESSMENT: 01/21 * Theodore received 63 units of insulin yesterday (50 were basal) * Fasting BSG above goal range this AM, will continue with yesterday's basal dosage and allow for additional 20% if BSGs above goal range * No changes to Novolog at this time, BSGs slowing downtrending with addition of basal insulin. He continues on dexamethasone 6mg IV (day 1/3) 01/20 * Theodore is a 73 YOM admitted status post spinal decompression/fusion with a history of diabetes mellitus. Pharmacy has been consulted for glycemic management while inpatient. * Preoperative BSG within goal range, demetrio above 200 by midday, appears to have received IV steroids in the OR, ongoing dexamethasone 6mg IV daily ordered for 3 days. Give approximately 0.3units/kg x1 now, basal scale added at bedtime if additional coverage is needed. * Novolog initiated at a weight based stress of 3 PLAN FOR INPATIENT GLYCEMIC CONTROL: * Hold outpatient oral diabetes medications * Basal insulin * Lantus 50 units SQ daily * Lantus 0-10 units SQ HS (see eMAR for additional details) * Bolus insulin * NovoLog per scale ACHS or Q6hrs while NPO * Goal Range: Low 110 mg/dL - High 140 mg/dL * Correction Factor: 15 mg/dL/unit * Nutritional / Prandial insulin per carb ratio of 1 unit per 5 grams CHO consumed
--- NOTE | 2024-01-22 13:58 | Orthopedic Progress Note ---
Date of Service January 22, 2024 Assessment & Plan (1) Neurogenic claudication due to lumbar spinal stenosis: Plan: At this time we will continue physical therapy monitor his MELBA operatively discharge home in next few days. Admission and Anticipated Discharge Date Admission Date: January 21, 2024 Subjective Back pain controlled leg pain markedly improved Physical Exam Physical Exam: Patient is in the chair at the bedside. Is comfortable. Distracted testing. Results & Data Vital Signs (Past 12 Hours) Vital Signs Temp Pulse Pulse Resp BP BP Pulse Ox 01/22/24 11:28 36.6 C 111 H 16 149/76 H 97 01/22/24 07:41 37.2 C 109 H 16 123/65 97 01/22/24 03:09 36.7 C 109 H 18 133/70 98 O2 Del Method 01/22/24 11:28 Room Air 01/22/24 07:41 Room Air 01/22/24 03:09 Room Air Queries Orthopedic Spine Obesity: Yes
[2024-01-22] MEDS: FAMOTIDINE 20 MG TAB PO PRN (20:37)
[2024-01-22] MEDS: hydroCHLOROthiazide 25 MG TAB PO SCH (21:07)
[2024-01-22] MEDS: amLODIPine BESYLATE 5 MG TAB PO SCH (21:08)
[2024-01-22] MEDS: lisinopril 20 MG TAB PO SCH (21:09)
[2024-01-23 08:23] LABS: Hematocrit (blood only) 34.6 % (42.0-52.0); Hemoglobin 11.8 g/dl (14.0-18.0); Mean Corpuscular Hemoglobin 33.8 pg (25.0-34.0); Mean Corpuscular Hgb Conc 34.1 g/dL (32.0-36.0); Mean Corpuscular Volume 99.1 fL (80.0-100.0); Mean Platelet Volume 10.2 fL (9.4-12.4); Platelet Count 145 K/uL (130-400); RDW Coefficient of Variation 12.6 % (11.5-14.5); RDW Standard Deviation 45.4 fL (36.4-46.3); Red Blood Count 3.49 M/uL (4.70-6.10); White Blood Count 13.54 K/ul (4.8-10.8)
[2024-01-23 08:41] LABS: BUN Creatinine Ratio 23.4 (10-20); Calcium 9.3 mg/dl (8.6-10.3); Creatinine Clr Calc Pharmacy 73.6 ml/min; Est GFR (African American) 75.9 ml/min; Est GFR (Non-African American) 65.5 ml/min; Potassium 4.1 mmol/L (3.5-5.1)
--- NOTE | 2024-01-23 10:44 | Orthopedic Progress Note ---
Date of Service January 23, 2024 Assessment & Plan (1) Neurogenic claudication due to lumbar spinal stenosis: Plan: At this time we will continue physical therapy monitor his MELBA output anticipate discharge home tomorrow. Admission and Anticipated Discharge Date Admission Date: January 21, 2024 Subjective Back pain controlled leg symptoms improved Physical Exam Physical Exam: Patient is in the chair at bedside. Discussed active testing. Appears comfortable. Queries Orthopedic Spine Obesity: Yes
--- NOTE | 2024-01-23 11:59 | Hospitalist Progress Note ---
Date of Service January 23, 2024 Assessment & Plan (1) Neurogenic claudication due to lumbar spinal stenosis: (2) Diabetes mellitus: (3) History of leukemia: (4) Hypertension: (5) Hyperlipemia: (6) Acute blood loss anemia: Plan This is a 73-year-old male who has a significant past medical history of T2DM, HTN, HLD, BPH, history of leukemia and chronic back pain who presents for elective lumbar procedure by Dr. Jensen. Neurogenic claudication due to lumbar spinal stenosis Status post lumbar decompression fusion L2-S1, Dr. Jensen POD #2 EBL 700 mL Tolerated procedure well Pain/wound management per orthopedic Activity and therapy as per orthopedics Encourage incentive spirometry Monitor hemoglobin in setting of blood loss, preop 15 Acute blood loss anemia in setting of expected post operative blood loss EBL 700ml; GRZEGORZ drain with 860ml Pre op hgb 15, POD #2 11.8 repeat cbc in a.m. T2DM, controlled Hold glimepiride A1c 7.0 Lantus/NovoLog per protocol, glycemic pharmacy on board appreciate input BSG stable at 153, 164 he discussed wanting to talk to machine grainer/certified adapted physical educator and consult was placed HTN BP normalized and will resume lisinopril, amlodipine an HCTZ BP 143/80 Hyperlipidemia Chronic, stable Continue statin BPH Chronic, stable Continue Flomax History of hairy cell leukemia Diagnosed in 2011, currently in remission follows Dr. Augustin DVT ppx: SCDs per primary FULL CODE PCP: Lauren Peters, pt wishs to establish with [facility] PCP, Isac Choi. Unfortunately he is booked out until August. Scheduled him with Dr Simon Sanchez for end of january and will inform patient he can then schedule follow up with Dr. Isac Choi Dispo: per primary Thank you for this consultation. We will follow the patient with you during their hospital stay. You can reach a member of the [facility] Hospitalist Team 23/04 via hospitalist role on tiger text. A total of 42 minutes was spent coordinating, documenting, and providing care for this patient excluding time spent in the performance of separately billed services. This included personally viewing all current laboratories and imaging studies, medication reconciliation, outpatient chart review, and discussion with specialists. Admission and Anticipated Discharge Date Admission Date: January 21, 2024 Subjective Patient was seen and examined in room 376. Follow-up lumbar surgery. He feels well today. Minimal back pain. We discussed establishing with new pcp as well as his diabetes. We discussed quiting smoking which he has done for almost 1 month. He denies f/c/s, chest pain, sob,n/v/d. Review of Systems Review of Systems: All systems reviewed & are unremarkable except as noted in HPI & below Physical Exam Physical Exam: Gen: WD/WN, M, sitting up in bedside chair, NAD, A&O x3 HEENT: Normocephalic, atraumatic, conjunctivae moist, sclerae anicteric, mucous membranes moist. Lung: Clear to Auscultation bilaterally, no wheezes/rales/rhonchi Heart: Regular rate, regular rhythm, no murmurs, rubs, or gallops Abdomen: Soft, NT, ND +BS x 4 Extremities: No edema, lumbar dressing CDI, grzegorz drain with serosang drainage Skin: Warm, no rash, negative turgor. Results & Data Results & Data Laboratory Results Short CBC 01/23/24 Range/Units 07:51 WBC 13.54 H (4.8-10.8) K/ul Hgb 11.8 L (14.0-18.0) g/dl Hct 34.6 L (42.0-52.0) % Plt Count 145 (130-400) K/uL BMP 01/23/24 07:51 Sodium 136 Potassium 4.1 Chloride 101 Carbon Dioxide 25 BUN 26 H Creatinine 1.11 Glucose 131 H Calcium 9.3 Medications Administered Current Inpatient Medications Acetaminophen (Acetaminophen 500 Mg Tab) 1,000 mg PO Q8H PRN PRN Reason: MILD Pain Scale 1,2,3 & Pre PT Stop: 02/20/24 13:57 Al Hydrox/Mg Hydrox/Simethicone (Aluminum/Magnesium Susp 30 Ml Udc) 30 ml PO Q6H PRN PRN Reason: Dyspepsia Stop: 02/20/24 13:57 Amlodipine Besylate (Amlodipine Besylate 5 Mg Tab) 5 mg PO QPM LILY Stop: 02/20/24 20:59 Last Admin: 01/22/24 21:08 Dose: 5 mg Atorvastatin Calcium (Atorvastatin 20 Mg Tab) 20 mg PO PM LILY Stop: 02/20/24 20:59 Last Admin: 04/23/24 20:28 Dose: 20 mg Bisacodyl (Bisacodyl 10 Mg Supp) 10 mg UT DAILY PRN PRN Reason: Constipation Stop: 02/20/24 13:57 Diphenhydramine HCl (Diphenhydramine Capsule 25 Mg Cap) 25 mg PO Q6H PRN PRN Reason: Allergic Rhinitis/Insomnia Stop: 02/20/24 13:57 Famotidine (Famotidine 20 Mg Tab) 20 mg PO Q12H PRN PRN Reason: Dyspepsia Stop: 02/20/24 13:57 Last Admin: 01/22/24 20:37 Dose: 20 mg Folic Acid (Folic Acid 1 Mg Tab) 1 mg PO QAM LILY Stop: 02/21/24 08:59 Last Admin: 01/23/24 09:11 Dose: 1 mg Hydrochlorothiazide (Hydrochlorothiazide 25 Mg Tab) 12.5 mg PO QPM LILY Stop: 02/20/24 20:59 Last Admin: 01/22/24 21:07 Dose: 12.5 mg Hydromorphone HCl (Hydromorphone Inj 0.5 Mg/0.5 Ml Syr) 0.5 mg IV Q3H PRN PRN Reason: MODERATE Pain (Scale 4,5,6) & Pre PT Stop: 02/04/24 13:57 Hydromorphone HCl (Hydromorphone Inj 1 Mg/Ml Syringe) 1 mg IV Q3H PRN PRN Reason: SEVERE Pain (Scale 7,8,9,10) Stop: 02/04/24 13:57 Hydroxyzine HCl (Hydroxyzine Hcl 25 Mg Tab) 25 mg PO Q8H PRN PRN Reason: Anxiety Stop: 02/20/24 13:57 Promethazine HCl 12.5 mg/ (Sodium Chloride) 50.5 mls @ 202 mls/hr IV Q6H PRN PRN Reason: Nausea &/or Vomiting Stop: 02/20/24 13:57 Lorazepam 0.5 mg/ Syringe 0.5 mls @ 2 mls/min IV Q8H PRN; Protocol PRN Reason: Sedation/Anxiety Stop: 02/20/24 13:57 Dexamethasone 6 mg/ Syringe 1.5 mls @ 1 mls/min IV DAILY LILY Stop: 01/24/24 09:02 Last Admin: 01/23/24 09:11 Dose: 1 mls/min Influenza Virus Vaccine Quadrival (Do Not Administer Flu Vaccine) 1 each N/A PRN PRN PRN Reason: Notification Stop: 02/20/24 13:57 Insulin Aspart (Insulin Aspart Per Unit Charge) 0 units SC ACHS [facility] Stop: 02/20/24 14:29 Last Admin: 01/23/24 09:16 Dose: 3 units Insulin Glargine (Lantus Per Unit Charge) 50 units SC DAILY [facility] Stop: 01/24/24 12:00 Last Admin: 01/23/24 09:18 Dose: 50 units Insulin Glargine (Lantus Per Unit Charge) 0 units SC HS [facility]; Protocol Stop: 02/21/24 20:59 Last Admin: 01/22/24 20:37 Dose: 5 units Lisinopril (Lisinopril 20 Mg Tab) 20 mg PO QPM [facility] Stop: 02/20/24 20:59 Last Admin: 01/22/24 21:09 Dose: 20 mg Loratadine (Loratadine 10 Mg Tab) 10 mg PO QPM [facility] Stop: 02/20/24 20:59 Last Admin: 01/22/24 20:28 Dose: 10 mg Lorazepam (Lorazepam 0.5 Mg Tab) 0.5 mg PO Q8H PRN PRN Reason: Sedation/Anxiety Stop: 02/20/24 13:57 Magnesium Hydroxide (Magnesium Hydroxide Susp 30 Ml Udc) 30 ml PO Q24H PRN PRN Reason: Constipation Stop: 02/20/24 13:57 Metoclopramide HCl (Metoclopramide Hcl Inj 5 Mg/Ml 2 Ml Vial) 10 mg IV Q6H PRN PRN Reason: Nausea &/or Vomiting Stop: 02/20/24 13:57 Miscellaneous Information (Pharmacy Glycemic Mgmt Consult) 1 each N/A UD PRN PRN Reason: Consult Stop: 02/20/24 13:57 Multivitamins (Multivitamin Tab) 1 tab PO QAM [facility] Stop: 02/21/24 08:59 Last Admin: 01/23/24 09:11 Dose: 1 tab Naloxone HCl (Naloxone Hcl 0.4 Mg/1 Ml Vial/Carp) 0.1 mg IV Q5M PRN PRN Reason: Oversedation/Resp depression Stop: 02/20/24 13:57 Ondansetron HCl (Ondansetron Inj 2 Mg/Ml 2 Ml Vial) 4 mg IV Q6H PRN PRN Reason: Nausea &/or Vomiting Stop: 02/20/24 13:57 Ondansetron HCl (Ondansetron 4 Mg Od Tab) 4 mg PO Q6H PRN PRN Reason: Nausea Stop: 02/20/24 13:57 Oxycodone HCl (Oxycodone Hcl Ir 5 Mg Tab (Immediate Release)) 5 - 10 mg PO Q4H PRN PRN Reason: Pain & Pre PT Stop: 02/04/24 13:57 Pneumococcal Polyvalent Vaccine (Do Not Administer Pneumococcal Vaccine) 1 each N/A PRN PRN PRN Reason: Notification Stop: 02/20/24 13:57 Senna/Docusate Sodium (Docusate Sodium/Senna 50/8.6mg Tab) 2 tab PO HS LILY Stop: 02/20/24 20:59 Last Admin: 01/22/24 20:28 Dose: 2 tab Sodium Biphosphate/Sodium Phosphate (Sod Phosphate/Sod Biphosphate Enema 132 Ml Btl) 132 ml UT ONE PRN PRN Reason: Constipation Stop: 02/20/24 13:57 Tamsulosin HCl (Tamsulosin Hcl 0.4 Mg Cap) 0.4 mg PO QPM LILY Stop: 02/20/24 20:59 Last Admin: 01/22/24 20:29 Dose: 0.4 mg Tramadol HCl (Tramadol Hcl 50 Mg Tablet) 50 - 100 mg PO Q4H PRN PRN Reason: Moderate-Severe pain & Pre PT Stop: 02/20/24 13:57
[2024-01-23] MEDS: ACETAMINOPHEN 500 MG TAB PO PRN (20:02)
[2024-01-24 07:46] LABS: Hematocrit (blood only) 34.5 % (42.0-52.0); Mean Corpuscular Hemoglobin 34.2 pg (25.0-34.0); Mean Corpuscular Hgb Conc 34.8 g/dL (32.0-36.0); Mean Corpuscular Volume 98.3 fL (80.0-100.0); Platelet Count 157 K/uL (130-400); RDW Coefficient of Variation 12.5 % (11.5-14.5); Red Blood Count 3.51 M/uL (4.70-6.10); White Blood Count 12.15 K/ul (4.8-10.8)
[2024-01-24 08:04] LABS: BUN Creatinine Ratio 24.8 (10-20); Calcium 9.4 mg/dl (8.6-10.3); Creatinine Clr Calc Pharmacy 72.3 ml/min; Est GFR (African American) 74.3 ml/min; Est GFR (Non-African American) 64.1 ml/min
--- NOTE | 2024-01-24 10:56 | Discharge Summary ---
Date of Service January 24, 2024 Admission HPI Per Admitting Provider This is a 73-year-old female presents chronic persistent back and leg pain Patient nonoperative care is here for surgical invention. Principal Diagnosis Lumbar spinal stenosis with neurogenic claudication Discharge Data Allergies Allergy/AdvReac Type Severity Reaction Status Date / Time No Known Allergies Allergy Verified 01/21/24 06:36 Consultations 01/21/24 13:58 Consult Hospitalist Routine Procedures Performed Operation Date: 01/21/24 07:45 Actual Procedures p L2-S1 Decompression and Fusion, Spinal Cord Monitoring(Not Applicable) - Rosalio Jensen DO Ordered Studies 01/21/24 09:35 FL lumbar spine 2-3V Routine Hospital Course (1) Neurogenic claudication due to lumbar spinal stenosis: Patient went multilevel lumbar decompression fusion tolerated as well as taken to orthopedic floor postoperatively. Patient progressed appropriately throughout his stay. Excellent strength testing. MELBA drain decreasing well. Pain controlled. Subsidy discharged home. Discharge orders instructions found in chart for further review. Total Time Total Time Spent Total Time Spent (In Minutes): 20 minutes Discharge Plan Discharge Items Patient Disposition: Home - Self-Care Reason For Visit: Spinal Stenosis, Lumbar Region with Neurogenic Cla Discharge Diagnosis: Lumbar spinal stenosis with neurogenic claudication Activity: As commented below Non-emergency contact: Primary Care Provider Call non-emergency contact if: you have any medication questions Follow-up/Referrals: Lauren Peters MD [Primary Care Provider] - Simon Angela M.D. [Outside Practitioners] - 02/26/24 10:20 am Diet: Carb Consistent or DM2 Addtl Attending Provider Instructions: ACTIVITY RECOMMENDATIONS: SELF CARE INSTRUCTIONS AFTER THORACIC/LUMBAR FUSIONS 1. You may walk to your tolerance. It is good exercise for your legs and back. Expect some back and intermittent leg aches and pains. 2. You may perform "counter-top" level activities (make a sandwich, juan with a project, etc.). 3. No bending or lifting of more than 10 pounds or back twisting of any nature (roll like a log when turning in bed). 4. You may ride in a car for 20-30 minutes at a time. No driving until after your first visit with your doctor. 5. Frequent changes of position and restricting sitting to 30 minutes at a time will help limit the amount of back spasms and stiffness you may experience. 6. You may discontinue the use of ambulatory aids (cane, crutches, etc.) once your strength and confidence allow. 7. You may instrument installer the shower and let water strike your incision when you arrive home at least once daily. Do not take a tub bath, sit in a hot tub or go into a swimming pool until after your first recheck in the office. SPECIAL CARE INSTRUCTIONS: VERY IMPORTANT TO READ AND REVIEW A. Your surgical incision has been closed with a cosmetic suture under the skin that will dissolve in about 6 weeks. In 14 days, you can use a pair of clean scissors and cut the suture that is left outside of the skin at the ends of your incision. 1. The small skin tapes can be removed 7 days after surgery if they have not fallen off by that point. 2. You may keep the wound open to air as much as possible to promote healing after post-op day number 5 unless told otherwise by your doctor. 3. If you think the wound looks like it is becoming infected (redness or worsening drainage) and/or you are experiencing fever, chill or worsening back pain and muscle spasms, contact the office so that we may evaluate you as soon as possible. B. Complications are uncommon, but please contact us if you have any signs or symptoms of: 1. wound infection (fever higher than 102.5 degrees F, redness, separation of wound, drainage, or increasing pain from the incision) 2. blood clots in legs (pain, swelling, redness and warmth in legs) 3. urinary tract infection (fever higher than 102.5 degrees F, burning upon urination or increased frequency of urination) 4. nerve problems (inability to walk on your toes or heels, numbness, loss of bowel or bladder control) 5. any other symptoms that concern you C. Please call the office at if you have any concerns or questions about your operation or recovery. D. No smoking! Smoking drastically decreases the chance of a solid fusion. E. Do not take any anti-inflammatory medications (Indocin, Advil, Motrin, Aspirin, Naprosyn, etc.) as these may inhibit the chance of a solid fusion. Tylenol is okay to take for pain. MANAGING PAIN AFTER SPINAL SURGERY 1. Narcotic medication is intended for short-term use and will be provided for surgical pain. Surgical pain usually lasts for a period of 4-6 weeks. Narcotic medication includes Percocet, Vicodin, Darvocet, Tylenol #3 or Lortab. 2. Longer-term pain is more appropriately treated with non-narcotic medication such as Tylenol ES. 3. Muscle spasm is not appropriately treated with narcotics. Muscle relaxers such as Soma, Flexeril or Skelaxin can be used along with Tylenol ES. 4. Remember that we all live with some "aches and pains". This is not unusual or uncommon after an injury or as we get older. a. Back pain is expected and may include muscle spasms for 4 to 6 weeks after surgery. The pain should gradually improve. If the pain worsens for no apparent reason, please contact the office. b. Intermittent leg pain may also be experienced and should not be concerned about unless it worsens for no apparent reason. If so, please contact the office. 5. We will provide appropriate medication within the normal guidelines of their prescribed use. We will also be very cautious and aware of potential abuse and extended duration of patients' medication needs. a. Pain medications are for your comfort and to assist with sleep and rest so that the tissue can heal. They are not provided in order to return to normal activity and should not be used through the day. To do so or worsening pain at night can result from ongoing tissue damage and development of tolerance to the prescribed medicine. 6. Please allow 2-3 days to process refills. Prescriptions will not be mailed but must be picked up at the office. FOLLOW UP VISIT: Keep your scheduled follow-up appointment. Any questions, please call the office at . Pending Studies at Discharge: No Stand-Alone Forms: My [facility] [employer], Smoking Cessation Medications and DC Order Prescriptions: New tramadol 50 mg tablet 50 mg PO Q6H PRN (Reason: pain, moderate) Qty: 30 0RF oxycodone 5 mg tablet 5 mg PO Q6H PRN (Reason: pain) Qty: 30 0RF Continued atorvastatin 20 mg Tablet 20 mg PO PM lisinopril 20 mg Tablet 20 mg PO QPM amlodipine 5 mg Tablet 5 mg PO QPM glimepiride 1 mg Tablet 1 mg PO QAM Rx Instructions: administer with breakfast tamsulosin 0.4 mg Capsule 0.4 mg PO QPM folic acid 1 mg Tablet 1 mg PO QAM multivitamin Capsule 1 cap PO QAM loratadine 10 mg Tablet 10 mg PO QPM hydrochlorothiazide 12.5 mg Tablet 12.5 mg PO QPM Discharge Orders: Discharge Order (Routine); Ordered 01/24/24 Ordered By: Rosalio Palacio/Other Patient Handouts: Managing Type 2 Diabetes Admission Data Admit Date/Time: 01/21/24 11:10 Attending Provider: Rosalio Jensen Admit Provider: Rosalio Jensen Primary Care Provider: Lauren Peters Other Providers: Aline Mcdonough
--- NOTE | 2024-01-24 17:09 | Hospitalist Progress Note ---
Date of Service January 24, 2024 Assessment & Plan (1) Neurogenic claudication due to lumbar spinal stenosis: (2) Diabetes mellitus: (3) History of leukemia: (4) Hypertension: (5) Hyperlipemia: (6) Acute blood loss anemia: Plan This is a 73-year-old male who has a significant past medical history of T2DM, HTN, HLD, BPH, history of leukemia and chronic back pain who presents for elective lumbar procedure by Dr. Jensen. Neurogenic claudication due to lumbar spinal stenosis POD# 3 L2-S1 decompression and fusion by Dr. Jensen EBL 700 mL Tolerated procedure well Pain/wound management per orthopedic Activity and therapy as per orthopedics Encourage incentive spirometry Acute blood loss anemia in setting of expected post operative blood loss EBL 700ml; MELBA drain with 1485 mL Preop Hgb 15.4 -> 12.0 T2DM, controlled Received Lantus and NovoLog per protocol while hospitalized Glycemic pharmacy following Resume home meds at discharge HTN Blood pressure on lower side postoperatively, required IV fluid bolus IVF to be stopped BP normalized and will resume lisinopril, amlodipine an HCTZ BP controlled and stable Hyperlipidemia Chronic, stable Continue statin BPH Chronic, stable Continue Flomax History of hairy cell leukemia Diagnosed in 2011, currently in remission follows Dr. Augustin DVT PROPHYLAXIS TEDs/SCDs as per spine Ortho Medically stable for discharge today PCP: Lauren Peters, pt and family state they wish to establish with someone in [email or web address], discussed if they wish to establish with someone with in [facility] we could make them a hospital follow up appointment --> arranged by previous provider Admission and Anticipated Discharge Date Admission Date: January 21, 2024 Subjective Follow-up for medical management, s/p L2-S1 decompression and fusion by Dr. Jensen Patient seen and examined. Sitting up in the chair. Eager to be discharged. Reports pain is well-controlled. Denies numbness, tingling, weakness to lower extremities. No chest pain or shortness of breath. Denies abdominal pain and nausea. + BM Physical Exam Constitutional: WD/WN, vitals as above no acute distress Respiratory: normal respiratory effort, lungs clear to auscultation Cardiovascular: Rate/Rhythm: regular rate and regular rhythm Vessels: normal peripheral pulses Extremities: no edema Gastrointestinal (Abdomen): Percussion/Palpation: abdomen soft; abdomen nontender Musculoskeletal: S/p back surgery, drain in place draining serosanguineous drainage, strength strong and equal BLE Skin: no rashes, warm and dry Neurologic: no focal motor deficits Psychiatric: A+Ox3, euthymic affect Results & Data Results & Data Vital Signs (Past 12 Hours) Vital Signs Temp Pulse Resp BP Pulse Ox O2 Del Method 01/24/24 07:36 36.7 C 93 H 18 130/75 98 Room Air Laboratory Results Short CBC 01/24/24 Range/Units 07:09 WBC 12.15 H (4.8-10.8) K/ul Hgb 12.0 L (14.0-18.0) g/dl Hct 34.5 L (42.0-52.0) % Plt Count 157 (130-400) K/uL BMP 01/24/24 07:09 Sodium 133 L Potassium 4.0 Chloride 99 Carbon Dioxide 26 BUN 28 H Creatinine 1.13 Glucose 206 H Calcium 9.4
== END 2024-01-24 12:37 | disposition home or self-care (01) | DRG 454 ==
LOC: ASU 05:54 → 3N 11:10